=== PATIENT | female | born 1990 | race Caucasian/White ===

== ENCOUNTER 2023-04-13 13:42 | Day surgery (SDC) | payer OTHER ==
[2023-04-13] MEDS ORDERED: LIDOCAINE HCL 1% 50 MG/5 ML VL PF IJ ONE (13:43)
[2023-04-13] MEDS ORDERED: Sodium Chloride 0.9(Preservative Free) 10 ML IJ ONE (13:43)
[2023-04-13] MEDS ORDERED: Depo-Medrol 40 MG/ML IM ONE (13:43)
[2023-04-13 13:54] LABS: HCG URINE TEST NEGATIVE (NEGATIVE)
[2023-04-13] MEDS ORDERED: DIPRIVAN 200 MG/20 ML IV ONE ×2 (14:36→14:48)
[2023-04-13] MEDS ORDERED: Lactated Ringers 1,000 ML IV ONE (16:02)
--- NOTE | 2023-04-13 16:36 | XRAY ---
Indication: Lumbar MIKA. Intraoperative fluoroscopy provided for 17 seconds. 2 digital spot images submitted for interpretation demonstrates needle tip projecting just posterior to L4-L5 interspace. Small amount of contrast injected for needle tip placement. Correlate with intraoperative findings/report.
--- NOTE | 2023-04-13 16:50 | XRAY ---
17 seconds of fluoroscopy was used in surgery for a lumbar MIKA.
== END 2023-04-13 15:12 | disposition home or self-care (01) ==
LOC: SDC-PAIN 13:42
PROVIDERS: ATTEND Psychiatry & Neurology Pain Medicine
DX: M54.16 Radiculopathy, lumbar region (principal); Z79.899 Other long term (current) drug therapy
CPT/HCPCS: 62323; 72100; 77003; 81025; J1030; J2001; J2704; Q9966